=== PATIENT | male | born 1935 | race Caucasian/White ===

== ENCOUNTER 2018-08-21 14:30 | Observation (INO) | payer MEDICARE, MEDICAID ==
[2018-08-20 08:46] VITALS: BP 118/78
[~2018-08-21] VITALS: Ht 177.8 cm; Wt 75.7 kg
[~2018-08-21 14:30] MED LIST: ASPI-496 PO; CHOL500015 PO; GLUC1TAB35 PO; MULT-658 PO; UBID1CAP43 PO; VITA400C43 PO
[2018-08-21] MEDS ORDERED: LACTATED RINGERS 1,000 ML IV SCH ×2 (14:53→20:12)
[2018-08-21] MEDS ORDERED: FENTANYL PF 100 MCG/2ML ONE (15:13)
[2018-08-21] MEDS ORDERED: SUCCINYLCHOLINE 20 MG/ML, 10ML ONE (15:13)
[2018-08-21] MEDS ORDERED: PROPOFOL 10 MG/ML, 20ML ONE (15:13)
[2018-08-21] MEDS ORDERED: MIDAZOLAM 1 MG/ML, 2ML ONE (15:13)
[2018-08-21] MEDS ORDERED: ONDANSETRON 2MG/ML, 2ML ONE ×2 (17:10→17:41)
[2018-08-21] MEDS ORDERED: CIPROFLOXACIN/PMX 400MG/200ML 200 ML ONE (17:27)
[2018-08-21] MEDS ORDERED: MEPERIDINE/PF 25MG/0.5ML IVPush PRN (17:30)
[2018-08-21] MEDS ORDERED: METOCLOPRAMIDE 5 MG/ML, 2ML IV PRN (17:30)
[2018-08-21] MEDS ORDERED: LORazepam 2 MG/ML, 1ML IVPush PRN (17:30)
[2018-08-21] MEDS ORDERED: LABETALOL 5MG/ML, 20ML IV PRN (17:30)
[2018-08-21] MEDS ORDERED: ACETAMINOPHEN 325 MG TABLET PO PRN (17:30)
[2018-08-21] MEDS ORDERED: KETOROLAC 30 MG/1 ML IV PRN (17:30)
[2018-08-21] MEDS ORDERED: FENTANYL PF 100 MCG/2ML IV PRN (17:30)
[2018-08-21] MEDS ORDERED: OXYcodone 5 MG/5 ML ORAL.SOL UDC PO PRN (17:30)
[2018-08-21] MEDS ORDERED: ACETAMINOPHEN 650 MG/20.3 ML UDC ONE (18:25)
[2018-08-21] MEDS ORDERED: OXYcodone 5 MG/5 ML ORAL.SOL UDC ONE (18:25)
[2018-08-21] MEDS ORDERED: OPIUM/BELLADONNA SUPP.RECT 16.2-30 MG PR PRN (20:30)
[2018-08-21] MEDS ORDERED: ONDANSETRON 2MG/ML, 2ML IV PRN (20:30)
[2018-08-21] MEDS ORDERED: morphine SULFATE 10 MG/ML, 1ML IV PRN (20:30)
[2018-08-21 23:36] VITALS: BP 97/60
[2018-08-22 03:07] VITALS: BP 96/52
[2018-08-22] MEDS ORDERED: CIPROFLOXACIN/PMX 400MG/200ML 200 ML IVPB SCH (05:00)
[2018-08-22 08:42] VITALS: BP 100/61
[2018-08-22 11:38] VITALS: BP 126/79
== END 2018-08-22 11:36 | disposition home or self-care (01) ==
LOC: OR 14:30 → 4NOR 19:05 → OR 20:07
PROVIDERS: ADMIT Urology; ATTEND Urology
DX: N40.0 Benign prostatic hyperplasia without lower urinary tract symptoms (principal)
CPT/HCPCS: 52648; 93005; 96365; G0378; J0330; J0744; J2250; J2405; J2704; J3010; J7120